=== PATIENT | male | born 1960 | race Caucasian/White ===

== ENCOUNTER 2019-04-17 09:56 | Inpatient (IN) | payer SELFPAY ==
[2019-04-17] MEDS ORDERED: Nitrostat 0.4 MG (ED) SL ONE ×2 (10:26→10:31)
[2019-04-17] MEDS ORDERED: BABY ASPIRIN 81 MG CHEW PO ONE (10:26)
[2019-04-17] MEDS ORDERED: MORPHINE SULFATE 4 MG INJ IV ONE (10:26)
[2019-04-17] MEDS ORDERED: Sodium Chloride 0.9% 1000 ML 1,000 ML IV SCH (10:30)
[2019-04-17] MEDS ORDERED: Sodium Chloride 0.9% 1000 ML 1,000 ML ONE (10:31)
[2019-04-17] MEDS ORDERED: MORPHINE SULFATE 4 MG INJ ONE (10:31)
[2019-04-17] MEDS ORDERED: BABY ASPIRIN 81 MG CHEW ONE (10:31)
--- NOTE | 2019-04-17 10:37 | ERPHSYRPT ---
- History of Present Illness Time Seen by Provider: 04/17/19 10:33 Historian: patient, family Exam Limitations: no limitations Patient Subjective Stated Complaint: PT states "about 4 days ago I had a sudden start of chest pain. I got really cold and sweaty and my chest has been getting worse and worse over the past 4 days." Triage Nursing Assessment: Pt presented to the front alert and oriented X 3, skin pwd Pt ambulates holding his left chest. Pt grungting and breathing shallow. Physician History: PT states "about 4 days ago I had a sudden start of chest pain. I got really cold and sweaty and my chest has been getting worse and worse over the past 4 days." denies same type of chest pain previously, current smoker, has family history of heart dis. has not seen physician for few years Timing/Duration: day(s) (4 days ago, it gor worse today) Activities at Onset: none Quality: stabbing, tightness Location: substernal Chest Pain Radiation: no radiation Severity of Pain-Max: moderate Severity of Pain-Current: moderate Modifying Factors: Improves With: nothing Associated Symptoms: hurts to breathe, diaphoresis Prior Chest Pain/Cardiac Workup: no prior chest pain Nitro Today/Relief: 0.4 mg x 1 Aspirin Treatment Today: 81 mg x 1 Allergies/Adverse Reactions: Penicillins Allergy (Severe, Verified 04/17/19 10:13) Home Medications: No Reportable Medications [No Reported Medications] 04/17/19 [History] Hx Tetanus, Diphtheria Vaccination/Date Given: Yes Hx Influenza Vaccination/Date Given: No Hx Pneumococcal Vaccination/Date Given: No Immunizations Up to Date: Yes - Review of Systems Constitutional: No Fever, No Chills Eyes: No Symptoms Ears, Nose, & Throat: No Symptoms Respiratory: No Cough, No Dyspnea Cardiac: Chest Pain, No Edema, No Syncope Abdominal/Gastrointestinal: No Abdominal Pain, No Nausea, No Vomiting, No Diarrhea Genitourinary Symptoms: No Dysuria Musculoskeletal: No Back Pain, No Neck Pain Skin: No Rash Neurological: No Dizziness, No Focal Weakness, No Sensory Changes Psychological: No Symptoms Endocrine: No Symptoms All Other Systems: Reviewed and Negative - Past Medical History Pertinent Past Medical History: No - Past Surgical History Past Surgical History: Yes Other Surgical History: rigth knee - Social History Smoking Status: Current every day smoker How long have you smoked: years Exposure to second hand smoke: Yes Drug Use: marijuana Patient Lives Alone: Yes - Nursing Vital Signs Nursing Vital Signs: Initial Vital Signs Temperature 97.6 F 04/17/19 09:56 Pulse Rate 94 H 04/17/19 09:56 Respiratory Rate 26 H 04/17/19 09:56 Blood Pressure 159/80 04/17/19 09:56 O2 Sat by Pulse Oximetry 98 04/17/19 09:56 Pain Scale Pain Intensity 8 - Physical Exam General Appearance: no apparent distress, alert Eye Exam: PERRL/EOMI, eyes nml inspection Ears, Nose, Throat Exam: normal ENT inspection, moist mucous membranes Neck Exam: normal inspection, non-tender, supple, full range of motion Respiratory Exam: diminished breath sounds, No respiratory distress Cardiovascular Exam: regular rate/rhythm, normal heart sounds, normal peripheral pulses, capillary refill 2-3 sec, No edema Gastrointestinal/Abdomen Exam: soft, No tenderness, No mass Back Exam: normal inspection, No CVA tenderness, No vertebral tenderness Extremity Exam: normal inspection, normal range of motion Neurologic Exam: alert, oriented x 3, cooperative, normal mood/affect, sensation nml, No motor deficits Skin Exam: normal color, warm, dry SpO2: 98 - Course EKG Interpreted by Me: Sinus Rhythm, Non-specific ST Changes - Radiology Exams Chest X-ray Interpretation: Reviewed by me, Infiltrates (left mid lung zone, ? mass) Ordered Tests: Active Orders 24 hr Category Date Time Status Lead Teller STAT Care 04/17/19 10:26 Active EKG-ER Only STAT Care 04/17/19 10:26 Active IV Insertion STAT Care 04/17/19 10:26 Active Oxygen-ED Only Nasal Cannula 2 lpm Care 04/17/19 10:26 Active CHEST 1 VIEW (PORTABLE) Stat Exams 04/17/19 10:26 Taken CHEST WITH CONTRAST [CT] Stat Exams 04/17/19 11:03 Taken BLOOD CULTURE Stat Lab 04/17/19 11:30 Received CBC W DIFF Stat Lab 04/17/19 10:40 Completed CMP Stat Lab 04/17/19 10:40 Completed D-DIMER QUANTITATION Stat Lab 04/17/19 10:40 Completed Lactic Acid Stat Lab 04/17/19 11:03 Results Manual Differential NC Stat Lab 04/17/19 10:40 Completed NT PRO BNP Stat Lab 04/17/19 10:40 Completed TROPONIN Q3H Lab 04/17/19 10:40 Completed TROPONIN Q3H Lab 04/17/19 13:30 Ordered TROPONIN Q3H Lab 04/17/19 16:30 Ordered TROPONIN Q3H Lab 04/17/19 19:30 Ordered TROPONIN Q3H Lab 04/17/19 22:30 Ordered Medication Summary Generic Name Dose Route Start Last Admin Trade Name Freq PRN Reason Stop Dose Admin Sodium Chloride 1,000 mls @ 100 mls/hr 04/17/19 10:30 04/17/19 10:33 Sodium Chloride 0.9% 1000 Ml IV 05/17/19 10:29 100 mls/hr .Q10H KEARA Administration Discontinued Medications Generic Name Dose Route Start Last Admin Trade Name Freq PRN Reason Stop Dose Admin Aspirin 81 mg 04/17/19 10:26 04/17/19 10:33 Baby Aspirin 81 Mg Chew PO 04/17/19 10:27 81 mg STAT ONE Administration Aspirin Confirm 04/17/19 10:31 Baby Aspirin 81 Mg Chew Administered 04/17/19 10:32 Dose 81 mg .ROUTE .STK-MED ONE Levofloxacin/Dextrose 750 mg in 150 mls @ 100 mls/hr 04/17/19 11:03 04/17/19 11:31 Levofloxacin 750mg/150ml D5w IV 04/17/19 12:32 100 ml/hr STAT STA 100 mls/hr Administration Levofloxacin/Dextrose Confirm 04/17/19 11:19 Levofloxacin 750mg/150ml D5w Administered 04/17/19 11:20 Dose 750 mg in 150 mls @ ud IV .STK-MED ONE Ketorolac Tromethamine Confirm 04/17/19 11:45 Toradol 30 Mg Injection Administered 04/17/19 11:46 Dose 60 mg .ROUTE .STK-MED ONE Morphine Sulfate 4 mg 04/17/19 10:26 04/17/19 10:34 Morphine Sulfate 4 Mg Inj IV 04/17/19 10:27 4 mg STAT ONE Administration Morphine Sulfate Confirm 04/17/19 10:31 Morphine Sulfate 4 Mg Inj Administered 04/17/19 10:32 Dose 4 mg .ROUTE .STK-MED ONE Nitroglycerin 0.4 mg 04/17/19 10:26 04/17/19 10:33 Nitrostat 0.4 Mg (Ed) SL 04/17/19 10:27 0.4 mg STAT ONE Administration Nitroglycerin Confirm 04/17/19 10:31 Nitrostat 0.4 Mg (Ed) Administered 04/17/19 10:32 Dose 0.4 mg SL .STK-MED ONE Lab/Rad Data: Laboratory Result Diagrams 04/17/19 10:40 04/17/19 10:40 Laboratory Results 04/17/19 04/17/19 04/17/19 Range/Units 11:03 10:40 10:40 WBC (4.0-10.5) K/mm3 RBC (4.1-5.6) M/mm3 Hgb (12.5-18.0) gm/dl Hct (42-50) % MCV (78-100) fl MCH (26-32) pg MCHC (32-36) g/dl RDW (11.5-14.0) % Plt Count (150-450) K/mm3 MPV (6-9.5) fl Segmented Neutrophils (36.-66.) % Band Neutrophils (0.0-2.0) % Lymphocytes (Manual) (24-44) % Monocytes (Manual) (0.0-12.0) % Platelet Estimate (NORMAL) RBC Morphology D-Dimer 1171 H* (215-500) ng/mL Sodium (137-145) mmol/L Potassium (3.5-5.1) mmol/L Chloride (98-107) mmol/L Carbon Dioxide (22-30) mmol/L Anion Gap (5-15) MEQ/L BUN (9-20) mg/dL Creatinine (0.66-1.25) mg/dL Estimated GFR ML/MIN Glucose (74-106) mg/dL Lactic Acid 1.9 (0.4-2.0) Calcium (8.4-10.2) mg/dL Total Bilirubin (0.2-1.3) mg/dL AST (17-59) U/L ALT (0-50) U/L Alkaline Phosphatase (38-126) U/L Troponin I < 0.012 (0.000-0.034) ng/mL NT-Pro-B Natriuret Pep (0-900) pg/mL Serum Total Protein (6.3-8.2) g/dL Albumin (3.5-5.0) g/dL 04/17/19 04/17/19 Range/Units 10:40 10:40 WBC 12.6 H (4.0-10.5) K/mm3 RBC 4.08 L (4.1-5.6) M/mm3 Hgb 13.2 (12.5-18.0) gm/dl Hct 39.6 L (42-50) % MCV 97.1 (78-100) fl MCH 32.4 H (26-32) pg MCHC 33.3 (32-36) g/dl RDW 13.8 (11.5-14.0) % Plt Count 150 (150-450) K/mm3 MPV 9.5 (6-9.5) fl Segmented Neutrophils 77 H (36.-66.) % Band Neutrophils 5 H (0.0-2.0) % Lymphocytes (Manual) 14 L (24-44) % Monocytes (Manual) 4 (0.0-12.0) % Platelet Estimate NORMAL (NORMAL) RBC Morphology NORMAL D-Dimer (215-500) ng/mL Sodium 135 L (137-145) mmol/L Potassium 4.6 (3.5-5.1) mmol/L Chloride 99 (98-107) mmol/L Carbon Dioxide 27 (22-30) mmol/L Anion Gap 13.9 (5-15) MEQ/L BUN 27 H (9-20) mg/dL Creatinine 1.08 (0.66-1.25) mg/dL Estimated GFR > 60.0 ML/MIN Glucose 139 H (74-106) mg/dL Lactic Acid (0.4-2.0) Calcium 8.9 (8.4-10.2) mg/dL Total Bilirubin 0.80 (0.2-1.3) mg/dL AST 39 (17-59) U/L ALT 43 (0-50) U/L Alkaline Phosphatase 92 (38-126) U/L Troponin I (0.000-0.034) ng/mL NT-Pro-B Natriuret Pep 208 (0-900) pg/mL Serum Total Protein 7.2 (6.3-8.2) g/dL Albumin 3.2 L (3.5-5.0) g/dL - Progress Progress: unchanged Air Movement: fair Blood Culture(s) Obtained: Yes Antibiotics given: Yes Discussed with : Jaziel Will see patient in: hospital (full admit) Counseled pt/family regarding: lab results, diagnosis, need for follow-up, rad results, smoking cessation - Departure Departure Disposition: In-patient Admission Clinical Impression: Left lower lobe pneumonia Qualifiers: Pneumonia type: due to other aerobic Gram-negative bacteria Qualified Code(s): J15.6 - Pneumonia due to other Gram-negative bacteria Condition: Fair Critical Care Time: Yes Critical Care Time(excluding separately billable procedures): Critical 30-74 mins Referrals: DOCTOR,NO FAMILY [Primary Care Provider] - Instructions: Pneumonia, Adult (DC)
[2019-04-17 10:47] LABS: Hematocrit 39.6 % (42-50); Hemoglobin 13.2 gm/dl (12.5-18.0); Mean Cell Volume 97.1 fl (78-100); Mean Corpuscular Hemoglobin 32.4 pg (26-32); Mean Corpuscular Hgb Concent. 33.3 g/dl (32-36); Mean Platelet Volume 9.5 fl (6-9.5); Platelet Count 150 K/mm3 (150-450); Red Blood Count 4.08 M/mm3 (4.1-5.6); Red Cell Distribution Width 13.8 % (11.5-14.0); White Blood Count 12.6 K/mm3 (4.0-10.5)
[2019-04-17 11:03] LABS: ALBUMIN 3.2 g/dL (3.5-5.0); ALKALINE PHOSPHATASE 92 U/L (38-126); ANION GAP 13.9 MEQ/L (5-15); BLOOD UREA NITROGEN 27 mg/dL (9-20); CHLORIDE 99 mmol/L (98-107); Calcium 8.9 mg/dL (8.4-10.2); Carbon Dioxide 27 mmol/L (22-30); Creatinine 1 1.08 mg/dL (0.66-1.25); Glucose 139 mg/dL (74-106); NT PRO BNP 208 pg/mL (0-900); Potassium 4.6 mmol/L (3.5-5.1); SGOT/AST 39 U/L (17-59); SGPT/ALT 43 U/L (0-50); SODIUM 135 mmol/L (137-145); Total Protein 7.2 g/dL (6.3-8.2)
[2019-04-17] MEDS ORDERED: LEVOFLOXACIN 750MG/150ML D5W 750 MG/150 ML BAG IV STA (11:03)
[2019-04-17] MEDS ORDERED: LEVOFLOXACIN 750MG/150ML D5W 750 MG/150 ML BAG IV ONE (11:19)
[2019-04-17 11:24] LABS: Lactic Acid 1.9 (0.4-2.0)
[2019-04-17] MEDS ORDERED: TORAdol 30 mg Injection ONE (11:45)
[2019-04-17 12:13] LABS: BAND 5 % (0.0-2.0); Lymphocytes 14 % (24-44); Monocyte 4 % (0.0-12.0); Neutrophils 77 % (36.-66.); Platelet Estimate NORMAL (NORMAL); Total Cells Counted 100
[2019-04-17] MEDS ORDERED: MORPHINE SULFATE 4 MG INJ IV PRN (14:16)
[2019-04-17] MEDS ORDERED: DUONEB 0.5-3 MG/3 ml Neb IH SCH (15:00)
[2019-04-17] MEDS: TORAdol 30 mg Injection IV PRN ×2 (15:19→22:56)
--- NOTE | 2019-04-17 19:42 | XRAY ---
Indication: Short of breath. Elevated d-dimer. Multiple contiguous axial images obtained through the chest using 80 cc Isovue 370 contrast and PE protocol. Comparison: None There is good opacification of the pulmonary arteries to include the lobar and segmental branches. No filling defect or pulmonary embolus. Heart is not enlarged. Aorta is normal in course and caliber. No pathologic mediastinal/hilar lymphadenopathy. Small hiatal hernia. Lungs demonstrates diffuse left lower lobe, mild right lower lobe, and minimal right upper lobe airspace opacities with multifocal consolidations. No large effusion. Bony thorax intact with mild degenerative changes throughout the spine. Limited upper abdomen demonstrates distended gallbladder without gallstones and 14.5 cm splenomegaly. Impression: 1. Negative pulmonary embolus. 2. Multi lobar pneumonia with multifocal consolidations. 3. Incidental splenomegaly. Comment: Preliminary interpretation was made by C. No critical discrepancy. CTDI 25.97
--- NOTE | 2019-04-17 19:44 | XRAY ---
Indication: Chest pain. Comparison: None Portable chest underinflated with left mid to lower lung infiltrate. Remaining heart, right lung, and bony thorax unremarkable..
[2019-04-18 05:36] LABS: Hematocrit 36.9 % (42-50); Hemoglobin 12.5 gm/dl (12.5-18.0); Mean Cell Volume 96.9 fl (78-100); Mean Corpuscular Hemoglobin 32.8 pg (26-32); Mean Corpuscular Hgb Concent. 33.9 g/dl (32-36); Mean Platelet Volume 9.6 fl (6-9.5); Platelet Count 139 K/mm3 (150-450); Red Blood Count 3.81 M/mm3 (4.1-5.6); Red Cell Distribution Width 13.9 % (11.5-14.0); White Blood Count 10.8 K/mm3 (4.0-10.5)
[2019-04-18 05:56] LABS: ALBUMIN 2.9 g/dL (3.5-5.0); ALKALINE PHOSPHATASE 93 U/L (38-126); ANION GAP 12.2 MEQ/L (5-15); BLOOD UREA NITROGEN 28 mg/dL (9-20); CHLORIDE 100 mmol/L (98-107); Calcium 8.7 mg/dL (8.4-10.2); Carbon Dioxide 26 mmol/L (22-30); Creatinine 1 1.16 mg/dL (0.66-1.25); Glucose 106 mg/dL (74-106); MAGNESIUM 1.9 mg/dL (1.6-2.3); Potassium 4.4 mmol/L (3.5-5.1); SGOT/AST 36 U/L (17-59); SGPT/ALT 35 U/L (0-50); SODIUM 134 mmol/L (137-145); Total Protein 6.6 g/dL (6.3-8.2)
--- NOTE | 2019-04-18 08:49 | PCM.HP ---
History of Present Illness - Chief Complaint Chief Complaint: left lower lobe pneumonia Date: 04/18/19 History of Present Illness: is a 59 year old male seen this am following ER admission for pneumonia and chest pain. Patient reports that he was recently out hunting in the rain and cold and started feeling sick shortly after. Patient reports that he tried to amoxicillin and Xanax which he had at home from previous Dr visits and that he was not getting any better. Patient reports that his daughter finally convinced him to come to the hospital. Patient reports that he smokes a ppd. Patient denies COPD diagnosis. Patient denies hx of asthma. Patient report SOB but reports cough. Patient reports he was running a fever. Patient denies nausea or vomiting. Patient denies sore throat sinus congestion. - Review of Systems Constitutional: Fever, Chills, Night Sweats, No Fatigue, No Weakness Eyes: No Symptoms Ears, Nose, & Throat: No Symptoms Respiratory: Cough, Short Of Breath Cardiac: Chest Pain, Edema, No Palpitations, No Syncope Abdominal/Gastrointestinal: Constipation, Other (Dark stools ), No Abdominal Pain, No Nausea, No Vomiting, No Diarrhea Genitourinary Symptoms: No Symptoms Musculoskeletal: Back Pain Skin: Rash (Chest rash occasionally) Neurological: Headache, No Dizziness Psychological: Alcohol Abuse (1-2 drinks once a month), Drug Abuse (occasional marijuana use), No Anxiety, No Depression Endocrine: No Symptoms Hematologic/Lymphatic: No Anemia Immunological/Allergic: No Symptoms Medications & Allergies Home Medications: Home Medication List No Reportable Medications [No Reported Medications] 04/17/19 [History Confirmed 04/17/19] Allergies/Adverse Reactions: Allergies Allergy/AdvReac Type Severity Reaction Status Date / Time Penicillins Allergy Severe Verified 04/17/19 10:13 - Past Medical History Past Medical History: No Neurological History: No Pertinent History ENT History: No Pertinent History Cardiac History: No Pertinent History Respiratory History: Pneumonia Endocrine Medical History: No Pertinent History Musculoskelatal History: No Pertinent History GI Medical History: No Pertinent History History: No Pertinent History Pyscho-Social History: No Pertinent History Male Reproductive Disorders: No Pertinent History - Past Surgical History Past Surgical History: Yes Neuro Surgical History: No Pertinent History Cardiac History: No Pertinent History Respiratory Surgery: No Pertinent History GI Surgical History: No Pertinent History Genitourinary Surgical Hx: No Pertinent History Musculskeletal Surgical Hx: Orthopedic Surgery Male Surgical History: No Pertinent History Other Surgical History: right knee - Social History Smoking Status: Current every day smoker How long have you smoked: "30 years" Exposure to second hand smoke: Yes Alcohol: Rarely Drug Use: marijuana - Physical Exam Vital Signs: Vital Signs - 24 hr Temp Pulse Pulse Resp BP Pulse Ox 04/18/19 07:28 98 F 82 20 152/73 95 04/18/19 04:14 97.9 F 80 24 135/73 98 04/17/19 23:31 98.2 F 84 20 122/66 94 L 04/17/19 21:17 96 H 20 96 04/17/19 19:47 98.0 F 96 H 21 115/69 95 04/17/19 16:23 90 18 95 04/17/19 16:00 98 F 101 H 18 125/68 95 04/17/19 14:38 98.0 F 104 H 18 143/74 98 04/17/19 13:18 98.3 F 107 H 18 133/72 98 04/17/19 13:08 98 04/17/19 12:53 104 H 04/17/19 12:35 98 H 20 143/87 96 04/17/19 10:50 98.2 F 100 H 24 131/83 95 04/17/19 09:57 90 04/17/19 09:56 97.6 F 94 H 26 H 159/80 98 Oxygen-Last 24 hours O2 Percentage 2 Liters = 28% O2 Percentage 2 Liters = 28% O2 Percentage 2 Liters = 28% O2 Percentage 2 Liters = 28% O2 Percentage 2 Liters = 28% O2 Percentage 2 Liters = 28% O2 Percentage 2 Liters = 28% O2 Percentage 2 Liters = 28% O2 Percentage 2 Liters = 28% General Appearance: no apparent distress, other (Patient is sleepy during exam) Neurologic Exam: alert, oriented x 3, cooperative, other (Flat affect) Eye Exam: eyes nml inspection, scleral icterus, No pale conjunctivae Ears, Nose, Throat Exam: moist mucous membranes, other (Brown discoloration of tongue) Neck Exam: non-tender, supple, full range of motion, No lymphadenopathy Respiratory Exam: normal breath sounds, crackles/rales, No respiratory distress , No rhonchi, No wheezing, No stridor Cardiovascular Exam: regular rate/rhythm, normal heart sounds, capillary refill 2-3 sec, No murmur, No friction rub, No gallop Gastrointestinal/Abdomen Exam: soft, distention, No normal bowel sounds, No tenderness, No guarding Rectal Exam: not done Back Exam: normal inspection Extremity Exam: pedal edema, No tenderness Skin Exam: normal color, warm, dry, other (1 cm skin lesion posterior right neck ), No rash, No jaundice, No abrasion Results - Labs Lab/Micro Results: Lab Results-Last 24 Hours 04/17/19 04/17/19 04/17/19 Range/Units 10:40 10:40 10:40 WBC 12.6 H (4.0-10.5) K/mm3 RBC 4.08 L (4.1-5.6) M/mm3 Hgb 13.2 (12.5-18.0) gm/dl Hct 39.6 L (42-50) % MCV 97.1 (78-100) fl MCH 32.4 H (26-32) pg MCHC 33.3 (32-36) g/dl RDW 13.8 (11.5-14.0) % Plt Count 150 (150-450) K/mm3 MPV 9.5 (6-9.5) fl Segmented Neutrophils 77 H (36.-66.) % Band Neutrophils 5 H (0.0-2.0) % Lymphocytes (Manual) 14 L (24-44) % Monocytes (Manual) 4 (0.0-12.0) % Platelet Estimate NORMAL (NORMAL) RBC Morphology NORMAL D-Dimer 1171 H* (215-500) ng/mL Sodium 135 L (137-145) mmol/L Potassium 4.6 (3.5-5.1) mmol/L Chloride 99 (98-107) mmol/L Carbon Dioxide 27 (22-30) mmol/L Anion Gap 13.9 (5-15) MEQ/L BUN 27 H (9-20) mg/dL Creatinine 1.08 (0.66-1.25) mg/dL Estimated GFR > 60.0 ML/MIN Glucose 139 H (74-106) mg/dL Lactic Acid (0.4-2.0) Calcium 8.9 (8.4-10.2) mg/dL Magnesium (1.6-2.3) mg/dL Total Bilirubin 0.80 (0.2-1.3) mg/dL AST 39 (17-59) U/L ALT 43 (0-50) U/L Alkaline Phosphatase 92 (38-126) U/L Troponin I (0.000-0.034) ng/mL NT-Pro-B Natriuret Pep 208 (0-900) pg/mL Serum Total Protein 7.2 (6.3-8.2) g/dL Albumin 3.2 L (3.5-5.0) g/dL 04/17/19 04/17/19 04/17/19 Range/Units 10:40 11:03 13:24 WBC (4.0-10.5) K/mm3 RBC (4.1-5.6) M/mm3 Hgb (12.5-18.0) gm/dl Hct (42-50) % MCV (78-100) fl MCH (26-32) pg MCHC (32-36) g/dl RDW (11.5-14.0) % Plt Count (150-450) K/mm3 MPV (6-9.5) fl Segmented Neutrophils (36.-66.) % Band Neutrophils (0.0-2.0) % Lymphocytes (Manual) (24-44) % Monocytes (Manual) (0.0-12.0) % Platelet Estimate (NORMAL) RBC Morphology D-Dimer (215-500) ng/mL Sodium (137-145) mmol/L Potassium (3.5-5.1) mmol/L Chloride (98-107) mmol/L Carbon Dioxide (22-30) mmol/L Anion Gap (5-15) MEQ/L BUN (9-20) mg/dL Creatinine (0.66-1.25) mg/dL Estimated GFR ML/MIN Glucose (74-106) mg/dL Lactic Acid 1.9 1.3 (0.4-2.0) Calcium (8.4-10.2) mg/dL Magnesium (1.6-2.3) mg/dL Total Bilirubin (0.2-1.3) mg/dL AST (17-59) U/L ALT (0-50) U/L Alkaline Phosphatase (38-126) U/L Troponin I < 0.012 (0.000-0.034) ng/mL NT-Pro-B Natriuret Pep (0-900) pg/mL Serum Total Protein (6.3-8.2) g/dL Albumin (3.5-5.0) g/dL 04/17/19 04/17/19 04/17/19 Range/Units 13:30 16:26 19:30 WBC (4.0-10.5) K/mm3 RBC (4.1-5.6) M/mm3 Hgb (12.5-18.0) gm/dl Hct (42-50) % MCV (78-100) fl MCH (26-32) pg MCHC (32-36) g/dl RDW (11.5-14.0) % Plt Count (150-450) K/mm3 MPV (6-9.5) fl Segmented Neutrophils (36.-66.) % Band Neutrophils (0.0-2.0) % Lymphocytes (Manual) (24-44) % Monocytes (Manual) (0.0-12.0) % Platelet Estimate (NORMAL) RBC Morphology D-Dimer (215-500) ng/mL Sodium (137-145) mmol/L Potassium (3.5-5.1) mmol/L Chloride (98-107) mmol/L Carbon Dioxide (22-30) mmol/L Anion Gap (5-15) MEQ/L BUN (9-20) mg/dL Creatinine (0.66-1.25) mg/dL Estimated GFR ML/MIN Glucose (74-106) mg/dL Lactic Acid (0.4-2.0) Calcium (8.4-10.2) mg/dL Magnesium (1.6-2.3) mg/dL Total Bilirubin (0.2-1.3) mg/dL AST (17-59) U/L ALT (0-50) U/L Alkaline Phosphatase (38-126) U/L Troponin I < 0.012 < 0.012 < 0.012 (0.000-0.034) ng/mL NT-Pro-B Natriuret Pep (0-900) pg/mL Serum Total Protein (6.3-8.2) g/dL Albumin (3.5-5.0) g/dL 04/17/19 04/18/19 04/18/19 Range/Units 22:45 05:14 05:14 WBC 10.8 H (4.0-10.5) K/mm3 RBC 3.81 L (4.1-5.6) M/mm3 Hgb 12.5 (12.5-18.0) gm/dl Hct 36.9 L (42-50) % MCV 96.9 (78-100) fl MCH 32.8 H (26-32) pg MCHC 33.9 (32-36) g/dl RDW 13.9 (11.5-14.0) % Plt Count 139 L (150-450) K/mm3 MPV 9.6 H (6-9.5) fl Segmented Neutrophils (36.-66.) % Band Neutrophils (0.0-2.0) % Lymphocytes (Manual) (24-44) % Monocytes (Manual) (0.0-12.0) % Platelet Estimate (NORMAL) RBC Morphology D-Dimer (215-500) ng/mL Sodium 134 L (137-145) mmol/L Potassium 4.4 (3.5-5.1) mmol/L Chloride 100 (98-107) mmol/L Carbon Dioxide 26 (22-30) mmol/L Anion Gap 12.2 (5-15) MEQ/L BUN 28 H (9-20) mg/dL Creatinine 1.16 (0.66-1.25) mg/dL Estimated GFR > 60.0 ML/MIN Glucose 106 (74-106) mg/dL Lactic Acid (0.4-2.0) Calcium 8.7 (8.4-10.2) mg/dL Magnesium 1.9 (1.6-2.3) mg/dL Total Bilirubin 0.90 (0.2-1.3) mg/dL AST 36 (17-59) U/L ALT 35 (0-50) U/L Alkaline Phosphatase 93 (38-126) U/L Troponin I < 0.012 (0.000-0.034) ng/mL NT-Pro-B Natriuret Pep (0-900) pg/mL Serum Total Protein 6.6 (6.3-8.2) g/dL Albumin 2.9 L (3.5-5.0) g/dL - Radiology Impressions Radiology Exams & Impressions: Radiology Procedures Category Date Time Status CHEST 1 VIEW (PORTABLE) Stat Exams 04/17/19 10:26 Completed CHEST 2 VIEWS (PA AND LAT) Routine Exams 04/18/19 06:30 Taken CHEST WITH CONTRAST [CT] Stat Exams 04/17/19 11:03 Completed - Other Procedures and Tests Respiratory Therapy 04/17/19 14:16 Oxygen Nasal Cannula 3 lpm 04/17/19 15:15 Smoking Cessation Education 04/17/19 16:09 Respiratory Therapy Assessment DAILY Assessment/Plan (1) Left lower lobe pneumonia Current Visit: Yes Status: Acute Qualifiers: Pneumonia type: due to other aerobic Gram-negative bacteria Qualified Code( s): J15.6 - Pneumonia due to other Gram-negative bacteria Assessment & Plan: 59 yr old male that appears older then stated age. Patient reports that he had cough/chest pain. Patient supposedly has an allergy to penicillin however he took amoxicillin at home for this illness. Patient was started on levaquin in ER x1 dose and then was transitioned to azith and rocephin IV. He will be on these IV meds for 2-3 days and then transitioned to PO. Patient will likely go home on . Code(s): J18.9 - PNEUMONIA, UNSPECIFIED ORGANISM (2) Smoker Current Visit: Yes Status: Acute Assessment & Plan: Patient is an everyday smoker. No desire to stop Code(s): F17.200 - NICOTINE DEPENDENCE, UNSPECIFIED, UNCOMPLICATED
[2019-04-18] MEDS: ROCEPHIN 1 Gm-D5w 50 ml Bag** 1 G/50 ML IVPB IV SCH (09:34)
[2019-04-18] MEDS: Zithromax 500 MG/ 250 ML NaCl Premix 500 MG/250 ML IVPB IV SCH (10:23)
[2019-04-18] MEDS ORDERED: CITROMA 296 ML PO ONE (13:42)
[2019-04-18] MEDS: Nicoderm CQ 21 MG TOP SCH (17:27)
--- NOTE | 2019-04-18 20:28 | XRAY ---
Indication: Left lower lobe pneumonia. Comparison: One day earlier. PA/lateral chest demonstrates worsening diffuse left lung airspace disease with new small left effusion. Remaining heart and right lung unremarkable.
[2019-04-18] MEDS: TORAdol 30 mg Injection IV PRN (22:05)
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
[2019-04-19] MEDS: ROCEPHIN 1 Gm-D5w 50 ml Bag** 1 G/50 ML IVPB IV SCH (09:12)
[2019-04-19] MEDS: Zestril 5 MG PO SCH (09:21)
[2019-04-19] MEDS ORDERED: Naprosyn 500 MG PO PRN (09:37)
[2019-04-19] MEDS: Zithromax 500 MG/ 250 ML NaCl Premix 500 MG/250 ML IVPB IV SCH (09:52)
[2019-04-19] MEDS ORDERED: DUONEB 0.5-3 MG/3 ml Neb IH PRN (16:40)
[2019-04-19] MEDS: Nicoderm CQ 21 MG TOP SCH (18:08)
[2019-04-20 07:54] VITALS: BP 155/93
[2019-04-20 08:16] VITALS: PULSE 84; O2SAT 92
[2019-04-20] MEDS: Zestril 5 MG PO SCH (09:29)
[2019-04-20] MEDS: ROCEPHIN 1 Gm-D5w 50 ml Bag** 1 G/50 ML IVPB IV SCH (09:34)
[2019-04-20] MEDS: Zithromax 500 MG/ 250 ML NaCl Premix 500 MG/250 ML IVPB IV SCH (09:34)
== END 2019-04-20 12:15 | disposition home or self-care (01) | DRG 195 ==
LOC: ED 09:56 → MED SURG 14:01
PROVIDERS: ADMIT Family Medicine; ATTEND Family Medicine
DX: J18.9 Pneumonia, unspecified organism (principal); I10 Essential (primary) hypertension; R61 Generalized hyperhidrosis; R51 Headache; K59.00 Constipation, unspecified; F17.200 Nicotine dependence, unspecified, uncomplicated
CPT/HCPCS: 36000; 36415; 71045; 71046; 71260; 80053; 83605; 83735; 83880; 84443; 84484; 85025; 85027; 85379; 87040; 93005; 93041; 94760; 96365; 96374; 99285; 99291; J0456; J0696; J1885; J1956; J2270; A9270-GY